=== PATIENT | female | born 1990 | race Caucasian/White ===

== ENCOUNTER 2016-03-15 06:48 | Emergency (ER) | payer MEDICARE, MEDICAID ==
[~2016-03-15] VITALS: Ht 157.5 cm; Wt 65.9 kg
[~2016-03-15 06:48] MED LIST: AZTH50T PO; CALC-1003 PO; CHOL100045 PO; ESCI20TA38 PO; HUMIRA; LURA60TA PO; MESA500C PO; PRE20 PO; RIZA5TAB18 PO
[2016-03-15 06:51] VITALS: BP 105/67; PULSE 100; RESP 16; O2SAT 98
[2016-03-15] MEDS ORDERED: 0.9% Sodium Chloride 1,000 ML IV ONE (07:01)
--- NOTE | 2016-03-15 07:01 | ED.REPORT ---
HPI-Abd Pain F Under 40 Date of Service Mar 15, 2016 ED Provider: Tracy Hobson MD Patient is a 25 year old female with a hx of Crohn's disease and FAS who presents to the ED due to RLQ abdominal pain onset two weeks ago with an increase in severity five days ago. Six days ago she got a CT scan at [facility] in [place] and is currently waiting for results. She confirms chills and dysuria and denies vomiting and fever. She last last had a bowel movement two days ago which is not normal, she is typically more frequent. She is having minimal gas and does not feel bloated. She is not sexually active. Nursing Notes Stated Complaint: SEVERE ABDOMINAL PAIN Chief Complaint: Female Abdominal Pain Nursing Notes Reviewed: Yes Allergies: Coded Allergies: lactose (Verified Adverse Reaction, Unknown, INTOLERANT, 12/25/14) Uncoded Allergies: NSAIDS (Adverse Reaction, Severe, PT HAS CROHNS, 12/25/14) Scheduled Azathioprine (Azathioprine) 50 Mg Tablet 75 MG PO DAILY Calcium Citrate/Vitamin D3 (Calcium Citrate +Vit D3 Tablet) 200 Mg Calcium-250 Unit Tablet 1 EACH PO DAILY Cholecalciferol (Vitamin D3) (Vitamin D) 1,000 Unit Capsule 1,000 UNIT PO DAILY PLEASE VERIFY DOSAGE Escitalopram Oxalate (Escitalopram Oxalate) 20 Mg Tablet 20 MG PO QAM Mesalamine (Pentasa) 500 Mg Capsule.er 2,000 MG PO BID Prednisone (PredniSONE) 20 Mg Tablet 40 MG PO DAILY Scheduled PRN Lurasidone (Latuda) 60 Mg Tablet 60 MG PO DAILY W/ MEAL PRN PRN PRN PLEASE VERIFY DOSAGE Rizatriptan ODT (Rizatriptan) 5 Mg Tablet 5 MG PO Q2H PRN PRN For Headache Miscellaneous Medications ([Humira]) SCHEDULED TO START WEEK PRIOR TO SURGERY General Time Seen by MD: 07:01 Chief Complaint Abdominal pain Hx Obtained From: Patient Arrived By: Walk-in Sudden in Onset?: Yes Onset Occurred: More than a week ago... (2 weeks) Symptom Duration: Since onset Progression since Onset: Gradually worsening Location: : RLQ Severity: Current: Moderate Recent Healthcare: Recent doctor visit Similar Sx Previous: Yes Past Medical History Past Medical History Per old records: The patient carries diagnoses of alcohol syndrome, central auditory processing disorder (CAP-D), and attention deficit disorder. Terminal ileitis Crohn's Disease Past Surgical History None reported Smoking History Never Smoker Social History Alcohol Use: Denies alcohol use Drug Use: Denies drug use Ambulatory Status Independent Review of Systems Constitutional: Reports: Chills, Denies: Fever GI: Reports: Abdominal pain (RLQ), Denies: Vomiting Female: Reports: Dysuria Complete sys rev & neg: except as marked. Physical Exam Initial Vital Signs Vital Signs (First) Date Time Temp Pulse Resp B/P Pulse Ox O2 Delivery O2 Flow Rate FiO2 03/15/16 06:51 36.7 100 16 105/67 98 Room Air Initial VS: Reviewed Head / Eyes: Atraumatic, Normocephalic, PERRL ENT: Mucous membranes moist, Conjunctiva normal, No scleral icterus Neck: Supple, Non-tender, Full range of motion Extremities: Vascular intact, Neuro intact, No swelling, No tenderness Skin: Warm, Dry, No cyanosis Neurologic: Alert, Oriented, Nonfocal Psychiatric: Mood/affect normal, Behavior normal, Normal thought content General/Constitutional: Awake, Alert, Well appearing, Cooperative, Not toxic appearing interactive Respiratory / Chest: Atraumatic, Breath sounds NL, Breath sounds = bilat, No respiratory distress, No rales, No rhonchi, No wheezing, No retractions Cardiovascular: Heart rate NL, Regular rhythm, Heart sounds NL, No gallop, No murmurs, No rubs Abdomen: Atraumatic, Soft Tenderness/Guarding/Rebound: Positive: Tender RLQ..., Tender flank R Bowel Sounds / Distention: Positive: Bowel sounds hypoactive minimal pain with belly exam Back: Atraumatic, Inspection NL, Full range of motion Interpretation & Diagnostics Lab Results Interpretation Result Diagram: 03/15/16 0735 03/15/16 0735 Test 03/15/16 07:35 03/15/16 09:45 White Blood Count 5.6th/mm3 (3.8-10.1) Red Blood Count 3.97mil/mm3 (3.90-5.20) Hemoglobin 13.1g/dL (12.0-15.6) Hematocrit 37.7% (35.0-46.0) Mean Corpuscular Volume 95.0fL (81-100) Mean Corpuscular Hemoglobin 33.0pg (27.0-35.0) Mean Corpuscular Hemoglobin Concent 34.7% (32.0-37.0) Red Cell Distribution Width 11.9% (12.3-15.4) Platelet Count 243bil/L (150-400) Neutrophils (%) (Auto) 68.6% (40-74) Lymphocytes (%) (Auto) 18.3% (14-46) Monocytes (%) (Auto) 9.1% (4-12) Eosinophils (%) (Auto) 2.7% (0-5) Basophils (%) (Auto) 1.1% (0-3) Sodium Level 137mEq/L (134-144) Potassium Level 4.1mEq/L (3.5-5.2) Chloride Level 101mEq/L (97-108) Carbon Dioxide Level 23mmol/L (18-29) Blood Urea Nitrogen 10mg/dL (6-20) Creatinine 0.63mg/dL (0.57-1.00) Estimat Glomerular Filtration Rate 166mL/min (>59) Glucose Level 86mg/dL (60-99) Calcium Level 9.0mg/dL (8.5-10.1) Magnesium Level 2.0mg/dL (1.6-2.6) Total Bilirubin 0.3mg/dL (0.0-1.2) Aspartate Amino Transf (AST/SGOT) 22U/L (0-50) Alanine Aminotransferase (ALT/SGPT) 14U/L (0-32) Alkaline Phosphatase 37U/L (25-150) Total Protein 6.8g/dL (6.4-8.4) Albumin 4.5g/dL (3.4-5.0) Lipase 18U/L (13-60) Hold Gloria Top Tube Received (Received) Hold Urine Received (Received) Re-Eval/Medical Decision Re-Evaluation/Progress #1: Time of Eval: 10:05 Patient Status: Mild relief Re-Evaluation/Progress Note: Patient rechecked. Pain improved. Discussed CT results from [facility] and plan of treatment. Lab work is normal. Re-Evaluation/Progress #2: Time of Eval: 11:30 Patient Status: Mild relief Re-Evaluation/Progress Note: PCP called and case discussed. Patient rechecked and informed of diagnosis of stricture, potential need for surgery and follow up with spring salvage worker. Re-Evaluation/Progress #3: Time of Eval: 12:13 Re-Evaluation/Progress Note: Still waiting for patient's mother to call back. Mother at this point has called the primary care doctors trying to call the spring salvage worker in [place] and looking for significant additional information. Has not called me back I do have all of that information and will help facilitate this. Explained to the father that it would be wonderful if I could talk to her mother and together we can figure out a plan rather than having her work on this independently while the patient is waiting in the emergency department Consultation : Referral / Consult Name: Timothy Mancia MD Call Returned at: 10:23 Coordinator Of Evaluation: Agrees with eval, Agrees with plan Note: Case discussed. Counseled Regarding: Diagnosis, Lab results, Need for follow-up, When/why to return to ED Discharge & Departure Primary Impression: Exacerbation of Crohn's disease Additional Impression: Abdominal pain Disposition: Home Discharge Condition All VS Reviewed: Yes Condition: Stable Additional Instructions: Thank you for coming to the Emergency Department today. You have a stricture that is 3.5 cm long at the terminal ileum. At this point, you do not have an acute surgical abdomen and do not need to stay in the hospital. You need emergent consultation. Your mother has arranged a 7 AM appointment with your spring salvage worker in [place]. Please show a copy of today's emergency department note with your spring salvage worker. Your CT scan from a couple of days ago does not suggest significant inflammation causing the stricture. This may mean that you would benefit from surgery. Your spring salvage worker will help determine this and appropriate follow-up tomorrow morning. You can use Percocet, one to 2 pills, sparingly for acute abdominal pain as needed. Return to the Emergency Department if you experience any new or worsening symptoms. We hope you feel better soon! Referrals: Dominic Sommers MD (PCP) Sanchez Attestation Portion of this note were transcribed by Radha Villatoro. I, Dr. Hobson, personally performed the history, physical exam, and medical decision-making: I reviewed and confirmed the accuracy for the information in the transcribed note. Signed by: sanchez Rodriguez, 03/15/16 [id number] copies to: Dominic Sommers MD, Shawna L MD Mar 15, 2016 07:01 RADHA VILLATORO Mar 15, 2016 07:18
[2016-03-15] MEDS ORDERED: Ondansetron 2 mg/mL 2 mL Inj IVPUSH ONE (07:05)
[2016-03-15] MEDS ORDERED: HYDROmorphone 0.5 mg/0.5 mL iSecure Syringe IVPUSH PRN (07:05)
[2016-03-15 08:00] LABS: BASOPHILS % (AUTO) 1.1 % (0-3); EOSINOPHILS % (AUTO) 2.7 % (0-5); MONOCYTES % (AUTO) 9.1 % (4-12); NEUTROPHILS % (AUTO) 68.6 % (40-74); Platelet Count 243 bil/L (150-400)
[2016-03-15 09:34] VITALS: BP 92/45; PULSE 76; RESP 15; O2SAT 100
[2016-03-15 11:49] VITALS: BP 100/52; RESP 16; O2SAT 97
[2016-03-15] MEDS ORDERED: oxyCODONE-Acetamin 5-325 mg Tablet PO ONE (12:45)
[2016-03-15] MEDS ORDERED: OXYC1TAB24 PO (13:17)
[2016-03-15 13:24] VITALS: BP 100/52; PULSE 76; RESP 16; O2SAT 97
== END 2016-03-15 13:25 | disposition home or self-care (01) ==
LOC: SED 06:48
DX: K50.90 Crohn's disease, unspecified, without complications (principal); E73.9 Lactose intolerance, unspecified; Z88.6 Allergy status to analgesic agent
CPT/HCPCS: 36415; 80053; 81025; 83690; 83735; 85025; 96361; 96374; 96375; 96376; 99284; J2270; J2405; J7030